=== PATIENT | female | born 1970 | race Caucasian/White ===

== ENCOUNTER 2022-02-05 13:17 | Outpatient (CLI) | payer BC, SELFPAY ==
--- NOTE | 2022-02-05 13:45 | CRLHL7_ITS ---
For Patients: As a result of the Century Cures Act, medical imaging exams and procedure reports are released immediately into your electronic medical record. You may view this report before your referring provider. If you have questions, please contact your health care provider. INDICATION: Low back pain. TECHNIQUE : Lumbar spine MRI without contrast. The following sequences were obtained: Sagittal T1, T2 weighted and STIR sequences. Axial T1 and T2 weighted sequences. COMPARISON: None available. FINDINGS : Five lumbar type vertebral bodies, with the last fully formed disc space designated as L5-S1. Accentuated lumbar lordosis. No recent compression fracture or marrow replacing process. Lower cord/conus signal is normal. The conus terminates at a normal location. No intradural lesion. No extraspinal soft tissue abnormalities. Discs/Endplates: At L1-2, mild disc height loss and disc desiccation. At L2-3, disc desiccation with broad-based Schmorl`s node deformities. Remaining discs exhibit normal height and hydration signal. Prominent anterior/lateral paravertebral disc osteophytes at T12-L1, L1-2 and L2-3. Trace type 1 reactive marrow changes at T12-L1 anteriorly. Findings at individual levels as follows: T12-L1: No spinal canal or neural foraminal stenosis. L1-2: 5 millimeters retrolisthesis. Mild disc bulge. Mild right neural foraminal stenosis. No spinal canal or left neural foraminal stenosis. L2-3: Trace retrolisthesis. Mild disc bulge. No spinal canal or neural foraminal stenosis. L3-4: No spinal canal or neural foraminal stenosis. L4-5: No spinal canal or neural foraminal stenosis. L5-S1: Shallow central protrusion. No spinal canal or neural foraminal stenosis. Imaged SI joints: Within normal limits. Imaged sacrum: Within normal limits. IMPRESSION: 1. Scattered lumbar spondylosis without high grade spinal canal/neural foraminal stenosis or impingement of neural structures. 2. At T12-L1, mild type 1 reactive marrow changes anteriorly. 3. At L1-2, grade 1 retrolisthesis and mild right neural foraminal stenosis. Dictated by Derrick Garvin MD @ 02/05/2022 3:44:45 PM (Electronically Signed)
== END 2022-02-05 13:18 | disposition home or self-care (01) ==
LOC: MRI 13:17
PROVIDERS: PCP Family Medicine; Visit Provider Family Medicine
DX: M54.50 Low back pain, unspecified (principal); M51.26 Other intervertebral disc displacement, lumbar region; M51.27 Other intervertebral disc displacement, lumbosacral region
CPT/HCPCS: 72148

== ENCOUNTER 2023-10-03 13:56 | Emergency (ER) | payer BC, SELFPAY ==
[2023-10-03 13:58] VITALS: BP 101/62; PULSE 96; RESP 16; TEMP 36; O2SAT 97; BMI 26.6
[2023-10-03] MEDS: LOPERAMIDE HCL 2 MG CAPSULE 4 MG PO (14:34)
[2023-10-03] MEDS: ONDANSETRON 2 MG/ML inj 4 MG IVP (14:34)
[2023-10-03] MEDS: 0.9 % SODIUM CHLORIDE 1000 ml 1,000 ML IV (14:34)
[2023-10-03 14:43] LABS: Basophils Percent Auto 0.2 % (0.0-3.0); Eosinophils Percent Auto 0.9 % (0.0-7.0); Hematocrit 47.1 % (33.0-51.0); Hemoglobin* 15.6 gm/dL (12.0-16.0); Immature Granulocytes Pct Auto 1.1 %; Lymphocytes Percent Auto 18.5 % (20-44); Mean Corpuscular HGB Conc 33 gm/dL (32-36); Mean Corpuscular Hemoglobin 31 pg (26-34); Mean Corpuscular Volume 92 fL (80-100); Monocytes Percent Auto 7.1 % (0.0-11.0); Neutrophils Percent Auto 72.2 % (42.0-72.0); Platelet Count* 313 K/uL (140-440); RDW Coefficient of Variation % 12.6 % (11.5-15.5); Red Blood Count 5.12 m/uL (4.00-5.20); White Blood Count* 13.57 K/uL (4.50-11.00)
[2023-10-03 14:44] LABS: Slide Review Reflex No
[2023-10-03 14:59] LABS: Chloride* 99 mmol/L (96-114); Sodium* 137 mmol/L (135-149)
[2023-10-03 15:00] LABS: Albumin* 4.6 g/dL (3.3-5.0); Potassium* 3.5 mmol/L (3.6-5.1)
[2023-10-03 15:02] LABS: Creatinine* 0.9 mg/dL (0.5-1.5); Est. Creatinine Clearance* 72.08; Estimated Glomerular Filt Rate 76 ml/min
[2023-10-03 15:03] LABS: Alkaline Phosphatase* 80 U/L (40-150); Anion Gap 10 mEq/L (7-15); Aspartate Amino Transferase* 24 U/L (12-35); Bilirubin Direct* 0.3 mg/dL (0.0-0.5); Bilirubin Total* 0.6 mg/dL (0.1-1.5); Blood Urea Nitrogen* 22 mg/dL (7-30); Calcium* 9.1 mg/dL (8.4-10.6); Carbon Dioxide* 28 mmol/L (20-32); Glucose* 130 mg/dL (60-115); Total Protein* 7.3 g/dL (6.0-8.3)
[2023-10-03 15:04] LABS: Alanine Aminotransferase* 28 U/L (4-35)
--- NOTE | 2023-10-03 15:22 | ED.GENADULT ---
HPI - General Adult General Chief complaint: Diarrhea Stated complaint: Vomiting, diarrhea Time Seen by Provider: 10/03/23 13:57 Source: patient Mode of arrival: ambulatory Limitations: no limitations History of Present Illness HPI narrative: 52-year-old female coming in today complaining of vomiting and diarrhea going on day 3. She states that she had 2 days of vomiting and diarrhea. She had no vomiting today however the diarrhea continues. She can have up to 5 episodes per day. They are not dark or tarry stools. She denies any blood in her urine or vomitus. She states that she feels nauseated today but again, no vomiting. She states that she has been eating but any time she eats she has immediate diarrhea. She believes that she got food poisoning from a restaurant that she ate at on Friday. She feels bloated. She has no fevers or chills. She has abdominal cramping. She denies any chest pain or shortness of breath. She denies any recent traveling or sick contacts that she is aware of. She is not short of breath. She took some Pepto-Bismol, no other medications. No recent antibiotic use. Related Data Home Medications ?Medication ?Instructions ?Recorded ?Confirmed aripiprazole 5 mg tablet (Abilify) 5 mg PO QDAY 01/24/22 03/10/23 dextroamphetamine-amphetamine 5 mg 5 mg PO QDAY 01/24/22 03/10/23 tablet (Adderall) zoledronic acid 5 mg/100 mL in IV 01/24/22 03/10/23 mannitol 5 %-water intravenous piggybck (Reclast) Previous Rx's ?Medication ?Instructions ?Recorded celecoxib 200 mg capsule (Celebrex) 200 mg PO QDAY #30 caps 02/06/22 Allergies Allergy/AdvReac Type Severity Reaction Status Date / Time minocycline Allergy Verified 03/10/23 08:59 Penicillins Allergy Rash Verified 03/10/23 08:59 Review of Systems Status of ROS: Reports: 10 or more systems reviewed and unremarkable except as noted in History and below [facility] Medical History IBS (irritable bowel syndrome) ?K58.9 - Irritable bowel syndrome without diarrhea (ICD-10) Depression ?F32.A - Depression, unspecified (ICD-10) Low back pain ?M54.50 - Low back pain, unspecified (ICD-10) Osteoporosis ?M81.0 - Age-related osteoporosis without current pathological fracture (ICD-10) GERD (gastroesophageal reflux disease) ?K21.9 - Gastro-esophageal reflux disease without esophagitis (ICD-10) Surgical History H/O left knee surgery ?Z98.890 - Other specified postprocedural states (ICD-10) Social History Smoking Status: Current every day smoker Exam Narrative: Exam Narrative: Well-nourished well-developed patient in no acute distress. Alert and oriented. Answers questions appropriately. Mood and affect are appropriate. Thoughts are goal oriented and rational. No tangential or magical thinking noted. Patient speaks in full sentences without needing to catch her breath. She does not appear ill or toxic. HEENT: Normocephalic atraumatic. Pupils are equally round reactive to light. Extraocular muscles are intact. Conjunctivae are moist without any icterus noted. Moist mucous membranes. Posterior pharynx is normal. Neck is soft without any lymphadenopathy or thyromegaly. No masses are appreciated. Cardiovascular: Heart is regular rate and rhythm S1 and S2 are present without any murmurs. Lungs: Clear to auscultation bilaterally no wheezes rhonchi or rales are appreciated. Patient takes deep breaths without any discomfort. Abdomen: Soft and nontender nondistended with normal bowel sounds. No guarding or rebound. Extremities: Bilateral lower extremities are without edema. Normal DP and PT pulses. Skin: Well perfused without any obvious rashes. Const: Vital Signs, click to edit/add: Vital Signs - 24 hr 10/03/23 13:58 Temperature 96.8 F L Pulse Rate [Pulse Oximeter] 96 Respiratory Rate 16 Blood Pressure [Ri ght Upper Arm] 101/62 Pulse Oximetry 97 Oxygen Delivery Me thod Room Air Course Course ED Course: IV is established and patient received a L of normal saline and IV Zofran. Blood work shows that her CBC is mildly elevated at 13.57. Potassium just slightly low at 3.5, electrolytes otherwise within normal limits. LFTs are normal. She was not able to leave a stool sample while she was here. Vital Signs Vital signs: Initial Vital Signs Temperature 96.8 F L 10/03/23 13:58 Temperature Source Temporal Artery Scan 10/03/23 13:58 Pulse Rate 96 10/03/23 13:58 Respiratory Rate 16 10/03/23 13:58 Blood Pressure 101/62 10/03/23 13:58 Blood Pressure Mean 75 10/03/23 13:58 Pulse Oximetry 97 10/03/23 13:58 Oxygen Delivery Method Room Air 10/03/23 13:58 Vital Signs Temperature 96.8 F L 10/03/23 13:58 Pulse Rate 96 10/03/23 13:58 Respiratory Rate 16 10/03/23 13:58 Blood Pressure 101/62 10/03/23 13:58 Pulse Oximetry 97 10/03/23 13:58 Oxygen Delivery Method Room Air 10/03/23 13:58 Temperature 96.8 F L 10/03/23 13:58 Pulse Rate 96 10/03/23 13:58 Respiratory Rate 16 10/03/23 13:58 Blood Pressure 101/62 10/03/23 13:58 Pulse Oximetry 97 10/03/23 13:58 Oxygen Delivery Method Room Air 10/03/23 13:58 Medications Administered Medications: Discontinued Medications Generic Name Dose Route Start Last Admin Trade Name Freq PRN Reason Stop Dose Admin Sodium Chloride 1,000 mls @ 1,000 mls/hr 10/03/23 14:15 10/03/23 14:34 0.9 % Sodium Chloride 1000 Ml IV 10/03/23 15:14 1,000 mls/hr .Q1H CESAR Administration Loperamide HCl 4 mg 10/03/23 14:15 10/03/23 14:34 Loperamide Hcl 2 Mg Capsule PO 10/03/23 14:16 4 mg ONCE ONE Administration Ondansetron HCl 4 mg 10/03/23 14:14 10/03/23 14:34 Ondansetron 2 Mg/Ml Inj IVP 10/03/23 14:15 4 mg ONCE ONE Administration Medical Decision Making MDM Narrative Medical decision making narrative: 52-year-old female with 48 hours all vomiting and continued diarrhea. We discussed gastroenteritis as the likely cause of this. We discussed symptomatic treatment with continued fluid hydration rest and Imodium. Patient had no other questions. Lab Data Lab results reviewed: Yes I reviewed the patient's lab results Labs: Lab Results 10/03/23 Range/Units 14:32 WBC 13.57 H (4.50-11.00) K/uL RBC 5.12 (4.00-5.20) m/uL Hgb 15.6 (12.0-16.0) gm/dL Hct 47.1 (33.0-51.0) % MCV 92 (80-100) fL MCH 31 (26-34) pg MCHC 33 (32-36) gm/dL RDW Coeff of Laina 12.6 (11.5-15.5) % Plt Count 313 (140-440) K/uL Neut % (Auto) 72.2 H (42.0-72.0) % Lymph % (Auto) 18.5 L (20-44) % [place] % (Auto) 7.1 (0.0-11.0) % Eos % (Auto) 0.9 (0.0-7.0) % Baso % (Auto) 0.2 (0.0-3.0) % Neut # (Auto) 9.80 H (1.7-7.0) K/uL Lymph # (Auto) 2.50 (0.90-2.90) K/uL [place] # (Auto) 1.00 H (0.00-0.90) K/UL Eos # (Auto) 0.10 (0.00-0.50) K/uL Baso # (Auto) 0.00 (0.00-0.30) K/uL Abs Immat Gran (auto) 0.10 (0.00-0.30) K/uL Imm/Tot Granulo (auto) 1.1 % Sodium 137 (135-149) mmol/L Potassium 3.5 L (3.6-5.1) mmol/L Chloride 99 (96-114) mmol/L Carbon Dioxide 28 (20-32) mmol/L Anion Gap 10 (7-15) mEq/L BUN 22 (7-30) mg/dL Creatinine 0.9 (0.5-1.5) mg/dL Estimated Creat Clear 72.08 Estimated GFR 76 ml/min Glucose 130 H (60-115) mg/dL Calcium 9.1 (8.4-10.6) mg/dL Total Bilirubin 0.6 (0.1-1.5) mg/dL Direct Bilirubin 0.3 (0.0-0.5) mg/dL AST 24 (12-35) U/L ALT 28 (4-35) U/L Alkaline Phosphatase 80 (40-150) U/L Total Protein 7.3 (6.0-8.3) g/dL Albumin 4.6 (3.3-5.0) g/dL Discharge Plan Discharge Clinical Impression: Gastroenteritis Patient Disposition: Home, Self-Care Condition: Stable Additional Instructions: Likely have a viral infection of the gastrointestinal system causing nausea, vomiting and diarrhea. This can last a few days before it gets better. Recommend you start taking Imodium as directed per the bottle. Continue increasing your fluid intake until your diarrhea subsides. Recommend a daily boost shake or Pedialyte. Follow-up as needed. Prescriptions: No Action dextroamphetamine-amphetamine [Adderall] 5 mg tablet 5 mg PO QDAY zoledronic [id number] [Reclast] 5 mg/100 mL piggyback IV aripiprazole [Abilify] 5 mg tablet 5 mg PO QDAY celecoxib [Celebrex] 200 mg capsule 200 mg PO QDAY Qty: 30 0RF Follow Up/Referrals: Traci Mckeon MD [Primary Care Provider] - Stand Alone Forms: Eat Info Instructions
== END 2023-10-03 17:15 | disposition home or self-care (01) ==
PROVIDERS: Emergency Provider Family Medicine; PCP Family Medicine
DX: K52.9 Noninfective gastroenteritis and colitis, unspecified (principal)
CPT/HCPCS: 36415; 80048; 80076; 85025; 87045; 87046; 87427; 87493; 96374; 99283; 99284; A9270; J2405; J7030

== ENCOUNTER 2024-12-31 08:57 | Emergency (ER) | payer BC, SELFPAY ==
--- OUTSIDE RECORDS SUMMARY | 2024-12-31 08:59 | XMS_ITS | Clinical Summary ---
[facility] Address [address] [place] [address] Care Team Providers Care Director Industrial Nursing Name Role Phone No Primary/Referring, Phy Primary Care Provider Unavailable Source Comments You are receiving this document as you are listed as the primary care provider,follow-up provider, or the patient has been referred to you for consultation.This is in compliance with the Medicare and[employer] Hospital[employer] EHR Incentive Program,which states Providers who transition their patient to another setting of careor provider of care or refers their patient to another provider of care shouldprovide summary care record for each transition of care or referral. [facility] All[facility] Active Allergy Reactions Criticality Noted Date Comments Amoxicillin Hives High 11/13/2016 Minocycline Nausea And Vomiting 11/13/2016 Penicillins Hives High 11/13/2016 Sulfonamide Derivatives 08/18/2001 Medications Multiple Vitamin (MULTI VITAMIN DAILY) TABS 90 Tab 4 11/13/2016 Active folic acid 1 MG tablet Take 1 Tab by mouth daily. 90 Tab 3 11/13/2016 Active Immunizations Immunization Administration Dates Next Due Flu Vac Preserv Free (3+yrs) 01/25/2009 H1n1 Miv San[employer]i 3+ Yr (Injected) 05/09/2009 Social History Tobacco Use Types Packs/Day Years Used Date Smoking Tobacco: Every Day Cigarettes 1.5 30 Smokeless Tobacco: Never Alcohol Use Standard Drinks/Week Comments No 0 (1 standard drink = 0.6 oz pur e alcohol) Comments Unknown Sex and Gender Information Value Date Recorded Sex Assigned at Not on file Legal Sex Female 3:54 AM CDT Gender Identity Not on file Sexual Orientation Not on file Last Filed Vital Signs Vital Sign Reading Time Taken Comments Blood Pressure 106/66 11/13/2016 10:16 AM CDT Pulse 58 11/13/2016 10:16 AM CDT Temperature - - Respiratory Rate - - Oxygen Saturation - - Inhaled Oxygen Concentration - - Weight 63 kg (139 lb) 11/13/2016 10:16 AM CDT Height 168.9 cm (5' 6.5) 11/13/2016 10:16 AM CD T Body Mass Index 22.1 11/13/2016 10:16 AM CDT Plan of Treatment Health Maintenance Due Date Last Done Comments Cervical Cancer Screening Due 1968 Colon Cancer Screening Plan Due 1968 Hep C Screening (Preventive Services) 1968 Mammogram 1968 HIV Screening (Preventive Services) 1984 Adult Preventive Visit 1986 HepB Vaccine (1) 10/04/1987 Cholesterol 2013 Pneumococcal Vaccine 50+ Yrs (1 of 1 - PCV) 2018 Zoster/Shingles Vaccine (1 o f 2) 2018 DTaP/Tdap/Td Vaccine (2 - Tdap) 11/18/2019 11/17/2009, 01/10/1999 COVID-19 Vaccine (1 - 2023-2 5 season) 2024 Influenza Vaccine (#1) 2024 01/25/2009 HepA Vaccine Aged Out No longer eligi ble based on patient's age to complete this topic Hib Vaccine Aged Out No longer eligi ble based on patient's age to complete this topic IPV (Polio) Vaccine Aged Out No longe r eligible based on patient's age to complete this topic MCV4 Vaccine Aged Out No longer eligi ble based on patient's age to complete this topic Meningococcal B Vaccine Aged Out No l onger eligible based on patient's age to complete this topic Care Teams Director Industrial Nursing Relationship Specialty Start Date End Date No Primary/Referring, Lenny PCP - General 08/31/13
--- OUTSIDE RECORDS SUMMARY | 2024-12-31 08:59 | XMS_ITS | Encounter Summary ---
Author Organization [facility] Address [address] [place] [id number] Care Team Providers Care Pick Up Attendant Name Role Phone Traci Mckeon MD Primary Care Provider Chong Mendez MD Unavailable [phone] Reason for Visit * Reason Onset Date Comments Medication Question 07/03/2023 Encounter Details Date Type Department Care Team (Late st Contact Info) Description 07/03/2023 MyC Medical Advice [facility] [address] [place] [address] Chong Mendez MD [address] [facility] [address] [place] [address] Medication Question Social History Tobacco Use Types Packs/Day Years Used Date Smoking Tobacco: Former Cigarettes Q uit: 06/28/2020 Smokeless Tobacco: Never Alcohol Use Standard Drinks/Week Comments No 0 (1 standard drink = 0.6 oz pur e alcohol) PHQ-2 Answer Date Recorded PHQ-2 Score 0 06/25/2023 Adolescent Education Answer Date Record ed Getting School Help Needed Not on file 01/05 Comments No Sex and Gender Information Value Date Recorded Sex Assigned at Not on file 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 Pt inquiring how many days valtrex is adequate to treat outbreak? 2 tabs or 7-10 days worth? If 7-10 days, she is requesting an rx. Last OV: 06/25/23 documented in this encounter Plan of Treatment Not on file documented as of this encounter Visit Diagnoses Not on filedocumented in this encounter Additional Health Concerns Assessment Noted Time PHQ-9 Depression Total Score: 0 01/12/20 21 9:27 AM CDT documented as of this encounter Care Teams Pick Up Attendant Relationship Specialty Start Date End Date Traci Mckeon MD PCP - General Family Practice 11/23/18 Chong Mendez MD [address] [address] Assigned OBGYN Provider 07/05/23 documented as of this encounter
--- OUTSIDE RECORDS SUMMARY | 2024-12-31 08:59 | XMS_ITS | Clinical Summary ---
Author Organization [facility] Address [address] [place] [id number] Care Team Providers Care Hi Low Truck Driver Name Role Phone Traci Mckeon MD Primary Care Provider [phone] Chong Mendez MD Unavailable [phone] Allergies Active Allergy Reactions Criticality Noted Date Comments Amoxicillin 10/17/2015 Doxycycline diarrhea Penicillins 10/17/2015 Sulfa Antibiotics diarrhea Medications Cholecalcifero l (VITAMIN D3 PO) Take 1,000 Units by mouth daily Active FOLIC ACID PO Take 1 mg by mouth daily Active amphetamine-de xtroamphetamin e (ADDERALL XR) 10 MG 24 hr capsule 8 Active ARIPiprazole (ABILIFY) 5 MG tablet 8 Active CALCIUM PO Active MAGNESIUM PO Active albuterol (PROAIR HFA/PROVENTIL HFA/VENTOLIN HFA) 108 (90 Base) MCG/ACT inhaler Inhale 2 puffs into the lungs 0 Active valACYclovir (VALTREX) 1000 mg tablet TAKE 1 TABLET BY MOUTH TWICE DAILY FOR 10 DAYS 1 Active valACYclovir (VALTREX) 500 MG tabletIndicati ons:HSV (herpes simplex virus) infection Take 1 tablet (500 mg) by mouth daily 90 tablet 3 1 Active Zoledronic Acid (RECLAST IV) Active clindamycin (CLEOCIN T) 1 % external solution Apply topically. 4 Active cyclobenzaprin e (FLEXERIL) 10 MG tablet Take 1 tablet by mouth 3 times daily as needed. 4 Active fluorouracil (EFUDEX) 5 % external cream MIX 1 TO 1 WITH CALCIPOTRIENE THEN APPLY TO FACE TWICE DAILY FOR 4-7 DAYS 4 Active amphetamine-de xtroamphetamin e (ADDERALL XR) 15 MG 24 hr capsule 4 Active Active Problems Problem Noted Date Diagnosed Date LGSIL on Pap smear of cervix 12/30/2018 Overview (03/08/2024): 2014 dx vulvar cancer 06/23/18 ASCUS, neg HPV 12/30/18 LSIL, neg HPV 01/19/19 colpo bx and ECC neg (above per Care Everywhere) 06/28/19 NIL pap, neg HPV. Plan: pap in 6 months 01/03/20 NIL pap, neg HPV. Plan: cotest in 1 year 01/11/21 NIL, Neg HPV. Plan 3 yr co-test 02/24/24 NIL pap, neg HPV. Vulvar biopsy- negative. Plan cotest in 3 years. Immunizations Immunization Administration Dates Next Due Flu, Unspecified 01/25/2009 Influenza (H1N1) 05/09/2009 Influenza (IIV3) PF 02/03/2013, 3,02/19/2011,2009,03/12/2008,02/06/2006 Influenza (prior to 2023) 02/19/2011 Influenza Vaccine 18-64 (Flublok) 01/11/2021 Influenza Vaccine >6 months,quad, PF ,01/16/2019,01/09/2018,2016,12/21/2013 Pneumococcal 23 valent 02/06/2006 TD,PF 7+ (Tenivac) 01/10/1999 TDAP (Adacel,Boostrix) 12/31/2019,11/17/2009 Td (Adult), Adsorbed 01/10/1999 Zoster recombinant adjuvante d (Shingrix) 03/03/2020,12/31/2019 Family History Medical History Relation Comments Cancer Father lung Cancer Maternal Grandmother breast Diabetes Maternal Uncle Diabetes Paternal Grandmother Lung Cancer Sister bone and lung ca ncer Relation Status Comments Father Maternal Grandmother Maternal Uncle Paternal Grandmother Sister Social History Tobacco Use Types Packs/Day Years Used Date Smoking Tobacco: Former Cigarettes Q uit: 06/28/2020 Smokeless Tobacco: Never Tobacco Cessation:Counseling Given: No Alcohol Use Standard Drinks/Week Comments No 0 (1 standard drink = 0.6 oz pur e alcohol) PHQ-2 Answer Date Recorded PHQ-2 Score 0 06/25/2023 Adolescent Education Answer Date Record ed Getting School Help Needed Not on file 01/05 Comments No Sex and Gender Information Value Date Recorded Sex Assigned at Not on file Legal Sex Female 2:58 AM SIDEWALK INSPECTOR Gender Identity Not on file Sexual Orientation Not on file Occupation Industry Job Start Date Job End Date Not on file Not on file Not on file Not on file Last Filed Vital Signs Vital Sign Reading Time Taken Comments Blood Pressure 136/72 02/24/2024 3:54 PM SIDEWALK INSPECTOR Pulse 74 01/11/2021 9:29 AM CDT Temperature 36.6 C (97.8 F) 06/07/1999 11:00 AM SIDEWALK INSPECTOR Respiratory Rate - - Oxygen Saturation - - Inhaled Oxygen Concentration - - Weight 75.8 kg (167 lb) 02/24/2024 3:54 PM SIDEWALK INSPECTOR Height 172.7 cm (5' 8) 02/24/2024 3:54 PM SIDEWALK INSPECTOR Body Mass Index 25.39 02/24/2024 3:54 PM SIDEWALK INSPECTOR Plan of Treatment Health Maintenance Due Date Last Done Comments ADVANCE CARE PLANNING 1968 ANNUAL REVIEW OF HM ORDERS 1968 CT COLONOGRAPHY 1968 DIABETES SCREENING 1968 FIT 1968 FLEX SIG 1968 sDNA (Cologuard) 1968 HEPATITIS B VACCINE (1 of 3 - 19+ 3-dose series) 10/04/1987 LIPID 2008 PHQ-2 (once per calendar year) 2024 06/25/2023, 01/11/2021, 01/11/2021, Additional history exists YEARLY PREVENTIVE VISIT 06/24/2024 06/25/19 24, 03/01/2022, 01/11/2021, Additional history exists LUNG CANCER SCREENING 08/28/2024 08/29/2023 , 02/28/2023, 02/28/2023, Additional history exists COVID-19 VACCINE ( season) 2024 03/01/2022, 03/06/2021, 08/01/2020, Additional history exists INFLUENZA VACCINE (#1) 2024 , 02/07/2023, 02/13/2022, Additional history exists COLONOSCOPY 01/27/2025 01/28/2020, 01/28/2020 COLORECTAL CANCER SCREENING 01/27/2025 MAMMO SCREENING 02/19/2025 02/20/2024, 11/2023, 07/03/2023, Additional history exists HPV FOLLOW-UP 02/23/2027 02/24/2024, 02/12, 01/11/2021, Additional history exists PAP FOLLOW-UP 02/23/2027 02/24/2024, 02/12, 03/01/2022, Additional history exists DTAP/TDAP/TD VACCINE (3 - Td or Tdap) 12/30/2029 12/31/2019, 11/17/2009, 01/10/1999, Additional history exists ZOSTER VACCINE Completed 03/03/2020, 12/31/2019 HEPATITIS C SCREENING Completed 03/01/2022 HIV SCREENING Completed 03/01/2022 PNEUMOCOCCAL VACCINE 50+ YEARS Completed 03/01/2022, 02/06/2006 PAP Discontinued 02/24/2024, 02/12, 03/01/2022, Additional history exists HPV VACCINE (No Doses Required) Completed MENINGITIS VACCINE Aged Out No longer eligible based on patient's age to complete this topic Procedures Procedure Name Priority Date/Time Associated Diagnosis Comments HPV AND GYNECOLOGIC CYTOLOGY PANEL Routine 02/24/2024 4:39 PM SIDEWALK INSPECTOR Vulvar cancer (H) MA DIAGNOSTIC RIGHT W BOBBY Routine 07/03/2023 9:32 AM CDT Women's annual routine gynecological examination Subareolar mass of right breast COLONOSCOPY - HIM SCAN Routine 01/28/2020 from Last 3 Months or Most Recently Relevant to Health Maintenance Results * HPV and Gynecologic Cytology Panel ??? Recommended Age 30-65 Years (02/24/2024 4:39 PM SIDEWALK INSPECTOR) Human Papilloma Virus 16 DNA Negative Negative 02/25/2024 4:13 PM [facility] Human Papilloma Virus 18 DNA Negative Negative 02/25/2024 4:13 PM [facility] Human Papilloma Virus Other Negative Negative 02/25/2024 4:13 PM [facility] FINAL DIAGNOSIS This patient's sample is negative for high risk HPV DNA. METHODOLOGY: The [employer] system uses automated extraction, simultaneous amplification of HPV (E6/E7 oncogenes) and beta-globin, followed by real time detection of fluorescent labeled HPV and beta globin using specific oligonucleotide probes. The test specifically identifies types HPV 16 DNA and HPV 18 DNA while concurrently detecting the rest of the high risk types (31, 33, 35, 39, 45, 51, 52, 56, 58, 59, 66 or 68). COMMENTS: This test is not intended for use as a screening device for woman under age 30 with normal cervical cytology. Results should be correlated with cytologic and histologic findings. Close clinical follow up is recommended. Please see the separate Gynecologic Cytology (Pap) report from the same collection date. 02/25/2024 4:13 PM [facility] Brushing ENDOCERVICAL STRUCTURE / Unknown Non-blood Collection / Unknown 02/24/2024 4:39 PM SIDEWALK INSPECTOR 02/24/2024 4:53 PM SIDEWALK INSPECTOR Chong Mendez MD LAB - BLOOD ORDERABLES Fin al Result SPECIAL[facility] Specialty Lab [address] [facility], [address] [phone], [facility] Molecular Diagnostics [address] [facility] [address] [facility], [address] [phone], [facility] * MA Diagnostic Right w/Bobby (07/03/2023 9:32 AM CDT) Anatomical Region Laterality Modality Breast Bilateral Mammography Impressions 07/03/2023 10:19 AM CDT IMPRESSION: BI-RADS CATEGORY: 1 - Negative. RECOMMENDED FOLLOW-UP: Routine yearly mammography beginning at age 40 or as discussed with your provider. KAYLAN SPAULDING MD Narrative 07/03/2023 10:19 AM CDT EXAM: MA DIAGNOSTIC RIGHT W/ BOBBY, US BREAST RIGHT LIMITED 1-3 QUADRANTS, 07/03/2023 9:32 AM HISTORY: Palpable lump in the right breast COMPARISON: Prior mammograms dating back to 11/17/2017 BREAST DENSITY: There are scattered areas of fibroglandular density. FINDINGS: Diagnostic tomosynthesis with CAD shows nothing for malignancy in either breast with no worrisome interval change. Targeted ultrasound shows nothing for the malignancy in the area of palpable lump with outbound telemarketing representative normal images obtained at 12:00 3 cm from the nipple.. Chong Mendez MD IMG MAMMOGRAPHY ORDERABLES Final Result * Colonoscopy - HIM Scan (01/28/2020) Carla Arredondo - 01/28/2020 See Care Everywhere-[facility] us Provider Outside PROCEDURES Final Result from Last 3 Months or Most Recently Relevant to Health Maintenance [place] [facility] Care Teams Hi Low Truck Driver Relationship Specialty Start Date End Date Traci Mckeon MD PCP - General Family Practice 11/23/18 Chong Mendez MD [address] [place], [place] [address] Assigned OBGYN Provider 07/05/23
--- OUTSIDE RECORDS SUMMARY | 2024-12-31 09:00 | XMS_ITS | Clinical Summary ---
Author Organization [employer] [facility] Address [address] [place] [id number] Care Team Providers Care Mild Disabilities Teacher Name Role Phone Traci Mckeon MD Primary Care Provider Allergies Active Allergy Reactions Criticality Noted Date Comments Minocycline Diarrhea 09/05/2006 Nickel Contact Dermatitis 04/22/2023 Had allergy testing and reacted and also during a dental procedure had sore red, raw gums. Penicillins Hives 09/05/2006 Sulfa (Sulfonamide Antibiotics) Diarrhea 09/05/2006 Patient states has had this since allergy in 2006 and tolerated Medications calcium carbonate-vitamin D3, 600 mg-400 unit, (CALCIUM 600 + D) 600 mg(1,500mg) -400 unit tabletIndications: Osteopenia, unspecified location Take 1 tablet by mouth 2 times daily with meals. 180 tablet 3 7 Active albuterol (PROVENTIL) 0.083 % neb solutionIndication s:Mild intermittent asthma with acute exacerbation (HC) Inhale 3 mL via a nebulizer every 4 hours if needed. 1 box 1 9 Active nebulizer accessories kitIndications:Mil d intermittent asthma with acute exacerbation (HC) Tubing and mask. 1 Kit 9 Active albuterol HFA (PROAIR HFA) 90 mcg/actuation inhalerIndications :URTI (acute upper respiratory infection) Inhale 2 Puffs by mouth 4 times daily if needed. 1 g 0 Active folic acid 1 mg tabletIndications: Attention deficit disorder, unspecified hyperactivity presence Take 1 tablet by mouth once daily 90 Tablet 3 2 Active Vitamin D-3 50 mcg (2,000 unit) capsuleIndications :Attention deficit disorder, unspecified hyperactivity presence Take 1 capsule by mouth once daily 90 Capsule 2 2 Active valACYclovir (VALTREX) 500 mg tabletIndications: Genital herpes simplex, unspecified site Take 1 tablet by mouth once daily 90 Tablet 3 4 Active clindamycin phosphate 1% topical 1 % external solutionIndication s:Acne, unspecified acne type APPLY SOLUTION TOPICALLY TO AFFECTED AREA TWICE DAILY 60 mL 3 4 Active OMEPRAZOLE ORAL Take by mouth. Active cyclobenzaprine 10 mg tabletIndications: Back strain, sequela Take 1 tablet by mouth three times daily as needed for muscle spasm 30 Tablet 5 Active Active Problems Problem Noted Date Diagnosed Date Esophagitis 09/09/2023 Overview (09/09/2023): EGD 08/2023 esophagitis Adenomatous colon polyp 02/02/2020 Overview (02/02/2020): Colonoscopy 01/2020 polyp, repeat in 5 years LGSIL of cervix of undetermined significance 04/2018 Overview (04/12/2022): 06/2018 ASCUS 12/2018 LSIL/HPV negative 01/2019 [place]: negative 02/2022 NIL/HPV negative Plan: Pap/HPV due 02/2025 Osteoporosis 01/09/2018 Slow urinary stream 01/13/2017 JEFFERY (generalized anxiety disorder) 03/19/2016 Overdose 10/29/2015 KARLEE III (vulvar intraepithelial neoplasia III) 0 01/03/2015 Overview (04/12/2022): 12/2014 Vulva bx - KARLEE 2-3 01/2015 Vulvectomy - KARLEE 3 (+margins) Osteopenia 10/19/2012 Attention deficit disorder without mention of hy peractivity 03/04/2011 Adjustment disorder with depressed mood 02/27/20 11 Overview (02/26/2011): Rule out adult ADD Seasonal affective disorder 03/07/2008 Tobacco use disorder 03/04/2007 Irritable bowel syndrome 10/28/2006 Genital herpes, unspecified Vitamin D deficiency Resolved Problems Problem Noted Date Diagnosed Date Resolved Date Asthma 01/16/2015 11/27/2016 Encounters Date Type Department Care Team Description 12/29/2024 Telephone [facility] [address] [place] [address] Khadar Davidson MD Incision Concern (Call Back Requested) 12/06/2024 2:45 PM CDT Office Visit [facility] [address] [place] [address] Khadar Davidson MD Follow Up (Skin excision left lower leg) 12/06/[address] [address] Traci Mckeon MD Info. 12/06/2024 Travel 12/06/[address] [address] Traci Mckeon MD Appointment Request (Appointment Request) 11/29/2024 Telephone [facility] [address] [place] [address] Khadar Davidson MD Results (pathology) 11/26/2024 8:50 AM CDT Office Visit [address] [address] Traci Mckeon MD Follow Up (chest spots ); Concerns (discuss delayed lab results prior to surgery ) 11/26/2024 Travel 11/22/2024 3:30 PM CDT Office Visit [facility] [address] [place] [address] Khadar Davidson MD Consult (SCC of skin of left lower extremity referred by Dr. Mckeon) 11/22/2024 Travel 11/16/[address] [phone] Yola Brian, DO Need Meds 11/11/[address] [place] [address] Traci Mckeon MD Referral (General Surgeon ) 11/08/2024 7:25 AM CDT Office Visit [facility] [address] [place] [address] Traci Mckeon MD Derm Problem (Left guallpa another spot appeared. Also a few spots on chest) 11/08/2024 Travel 10/22/2024 Nurse Triage [facility] [address] [facility] [place] [address] Sabrina Hale, OD Eye Pain/problem from Last 3 Months Immunizations Immunization Administration Dates Next Due AMB Influenza, IIV3 (Age >=3 years)(Flu Clinic Only) 02/03/2013,02/19/2011,03/12/2008 Amb Influenza, ccIIV3 (Age > =18 Years) Preserve Free (Flu Clinic Only) 01/11/2021 COVID-19 vaccine (HiveLive-Bio NTech 30mcg/0.3mL) 12YO+ BIVALENT PF, MDV 03/01/2022 COVID-19 vaccine (Pfizer-Bio NTech 30mcg/0.3mL) PF, MDV 08/01/2020,07/11/2020 INFLUENZA, IIV3 PF (AGE >= 6 MO) 01/08/2024 Influenza A (H1N1), Inactivated 05/09/2009 Influenza RIV4 (Age 18+ Year s) PRESERV FREE 01/11/2021 Influenza Virus, Unspecified 01/25/2009 Influenza, IIV3 (Age 6-35 mos) 02/19/2011 Influenza, IIV3 (Age >=3 years) 02/04/20 13,04/25/2012,03/29/2010,2007,02/06/2006 Influenza, IIV4 02/07/2023, 2,12/31/2019,2018,01/09/2018,01/17/2017,12/21/2013 Pneumococcal Conj 20-valent (Prevnar 20) 03/01/2022 Pneumococcal Poly,23-Valent (Pneumovax) 02/06/2006 Td (Age >=7 Years) 01/10/1999 Td, Preservative Free (age > = 7 Years) 01/10/1999 Tdap 12/31/2019,11/17/2009 Zoster (Shingrix-RZV, recombinant) 03/03/2020, Family History Medical History Relation Name Comments Psychiatric illness Brother 2 Cancer Father lung Cancer-breast Maternal Grandmother Blood Disease Mother essential thro mbocythemia Cancer Mother skin/uterine Heart Disease Mother CHF Hypertension Mother Other Mother COPD Psychiatric illness Mother Thyroid Disease Mother Cancer-breast Other Niece X2 Heart Disease Paternal Aunt Mi age 34 Heart Disease Paternal Grandfather Cancer Paternal Grandmother Diabetes Paternal Grandmother Heart Disease Paternal Uncle Psychiatric illness Sister 2 Heart Disease Sister 3 6 stents age 5 5 Cancer-ovarian No Family History Relation Name Status Comments Brother 1 Alive x2 Brother 2 Father Maternal Grandfather Maternal Grandmother Mother (Age 83) COPD, Afib Other Niece Paternal Aunt Paternal Grandfather Paternal Grandmother Paternal Uncle Sister 1 Alive x3 Sister 2 Sister 3 Son Alive x1 Social History Tobacco Use Types Packs/Day Years Used Date Smoking Tobacco: Former Cigarettes 1 39.8 0 07/16/1983 - 05/05/2023 Smokeless Tobacco: Never Tobacco Cessation:Counseling Given: Not Answered Comments:quit on 08/28/20 Alcohol Use Standard Drinks/Week Comments No 0 (1 standard drink = 0.6 oz pur e alcohol) PHQ-2 Answer Date Recorded PHQ-2 TOTAL SCORE 0 03/18/2024 Social Connections Answer Date Recorded Do you often feel lonely or isolated from those around you? 0 03/17/2024 Financial Resource Strain Answer Date R ecorded Difficulty of Paying Living Expenses 3 03/17/2024 Difficulty of Paying Living Expenses Not on file 03/17/2024 Food Insecurity Answer Date Recorded Do you worry your food will run out before you are able to buy more? 1 03/17/2024 Transportation Needs Answer Date Record ed Does lack of transportation keep you from medica l appointments? 1 03/17/2024 Does lack of transportation keep you from work, meetings or getting things that you need? 1 03/17/2024 Housing Stability Answer Date Recorded What is your housing situation today? 1 03/17/2024 Utilities Answer Date Recorded Do you have trouble paying f or utilities (for example, heat, electricity, water, phone)? 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 on file Not on file Not on file Obstetrics History Para Term AB IAB SAB Ectopic Multiple Livin g Live Births 3 1 1 0 1 1 0 0 2 2 Date Outcome GA Total Labor Labor/2nd/3rd Weight Sex Type Anes PTL Yovana A1 A5 Name Clin 1991 IAB 1996 M Vag-S pont Living 1996 Term 40w 0d M Vag Living Last Filed Vital Signs Vital Sign Reading Time Taken Comments Blood Pressure 121/61 12/06/2024 2:47 PM CDT Pulse 90 12/06/2024 2:47 PM CDT Temperature 37.1 C (98.8 F) 03/05/2024 10:01 AM BUSINESS SUPPORT ASSOCIATE Respiratory Rate 16 03/05/2024 10:38 AM BUSINESS SUPPORT ASSOCIATE Oxygen Saturation 97% 12/06/2024 2:47 PM CDT Inhaled Oxygen Concentration - - Weight 70.6 kg (155 lb 9.6 oz) 12/06/2024 2:47 P M CDT Height 167.6 cm (5' 6) 02/07/2023 1:08 PM CDT Body Mass Index 25.11 02/07/2023 1:08 PM CDT Plan of Treatment Upcoming Encounters Date Type Department Care Team (Late st Contact Info) Description 01/06/2025 3:40 PM CDT Office Visit [facility] [address] [place] [address] Traci Mckeon MD [address] [place] [address] 02/02/2025 8:10 AM CDT Hospital Encounter [facility] [address] [place] [address] Will Sparks MD [address] [place] [address] 02/02/2025 8:10 AM CDT - 02/02/2025 8:50 AM CDT Surgery [facility] [address] [facility] [place] [place] [address] Will Sparks MD [address] [facility] [place] [facility] [address] COLONOSCOPY Scheduled Procedures Name Priority Associated Diagnoses Date/Ti me COLONOSCOPY Screening for colon cancer 02/02/2025 8:10 AM CDT Health Maintenance Due Date Last Done Comments Hepatitis B series for 19+ ( 1 of 3 - 19+ 3-dose series) 10/04/1987 BMI (ht and wt on same day) for age 18+ 02/08/2024 02/07/2023, 10/18/2022, 08/12/2022, Additional history exists COVID-19 vaccine series (2024- season) 2024 03/01/2022, 03/06/2021, 08/01/2020, Additional history exists Influenza Vaccine (#1) 2024 4, 02/07/2023, 02/13/2022, Additional history exists Colonoscopy through age 75 01/27/202501/27, 01/28/2020, 01/28/2020, Additional history exists Mammogram for age 45-75 02/19/2025 02/20/20 24, 02/17/2023, 01/14/2022, Additional history exists Pap test for age 21-65 03/01/2025 2, 03/01/2022, 12/30/2018, Additional history exists Depression screening for age 12+ 03/18/2025 03/18/2024, 04/22/2023, 02/14/2022, Additional history exists Low Dose CT (for lung CA) ag e 50-80 08/30/2025 08/30/2024, 08/29/2023, 02/28/2023, Additional history exists Lipids for age 45-75 10/11/2026 10/11/2021, 09/27/2020, 08/07/2018, Additional history exists Tetanus booster 12/30/2029 12/31/2019, 08/0 09/2009, 01/10/1999, Additional history exists RSV vaccine for adults or (1 - 1-dose 75+ series) 10/04/2043 Zoster (shingles) series for age 50+ Completed 03/03/2020, 12/31/2019 HIV for age 15-65 Completed 03/01/2022 Hepatitis C screening for ag e 18-79 Completed 03/01/2022 Pneumococcal series for age 50+ Completed 2, 02/06/2006 Goals Goal Patient Goal Type Associated Problems Recent Progress Patient-Stated? Author Autogenerat ed Goal Care Plan Autogenerated Problem No April Sauceda Procedures Procedure Name Priority Date/Time Associated Diagnosis Comments PATH TISSUE EXAM Routine 11/22/2024 3:49 PM CDT Squamous cell carcinoma of skin of lower extremity, unspecified laterality PATH TISSUE EXAM Routine 11/08/2024 7:47 AM CDT Skin lesion of left leg CT CHEST SCREENING LOW DOSE WO CONTRAST Routine 08/30/2024 9:15 AM CDT Tobacco use disorder XR MAMMO HERACLIO BILAT SCREEN Routine 02/20/2024 1:15 PM BUSINESS SUPPORT ASSOCIATE Visit for screening mammogram ANTI HIV 1/2 Routine 03/01/2022 10:00 AM BUSINESS SUPPORT ASSOCIATE Screening for HIV (human immunodeficiency virus) ANTI HCV Routine 03/01/2022 10:00 AM BUSINESS SUPPORT ASSOCIATE Need for hepatitis C screening test HPV HIGH RISK Routine 03/01/2022 9:30 AM BUSINESS SUPPORT ASSOCIATE Screening for cervical cancer LIPID PANEL W REFLEX MEASURED LDL Routine 10/11/2021 8:25 AM CDT Lipid screening COLONOSCOPY SCREENING Routine 01/28/2020 10:16 AM CDT Screening for colorectal cancer Polyp of colon, unspecified part of colon, unspecified type from Last 3 Months or Most Recently Relevant to Health Maintenance Results * PATH TISSUE EXAM (11/22/2024 3:49 PM CDT) Only the most recent of2 resultswithin the time period is included. Case Report Pathology Report Case: [id number] Authorizing Provider: Khadar Davidson MD Collected: 11/22/2024 1549 Ordering Location: [facility] Received: 11/23/2024 1135 Clinic Pathologist: Coleman Thomason Jr., MD Specimen: Left Tibia, squamous cell carcinoma, single stitch superior, double stitch lateral 11/26/2024 11:09 AM CDT [facility]- ENTRAL LABORATORY Final Diagnosis SKIN, LEFT TIBIA, RE-EXCISION: 1. Residual squamous cell carcinoma, completely excised 2. Changes of prior biopsy 11/26/2024 11:09 AM CDT [facility] ENTRAL LABORATORY at 1109 CDT Clinical Information Re-excision of SCC 11/26/2024 11:09 AM CDT [facility] ENTRAL LABORATORY Gross Description A) Received in formalin, labeled with the patient's name and squamous cell carcinoma left tibia, is a 2.7 x 0.7 x 0.5 cm oriented skin ellipse with a single stitch designating superior and a double stitch designating lateral. The single stitch has been arbitrarily redesignated as 12:00 and the double stitch has been arbitrarily redesignated as 3:00. The skin surface displays a 0.6 x 0.4 cm previous biopsy site 0.1 cm from the 3:00 margin. The specimen is inked as follows: 12-3 o'clock: Blue 3-6 o'clock: Green 6-9 o'clock: Red 9-12 o'clock: Yellow The specimen is serially sectioned from 12:00 to 6:00 and entirely submitted: 1. Tips (12:00, 6:00) 2-4. Remainder of specimen, sequentially submitted (previous biopsy site identified in cassettes 2-3) ADK 11/23/2024 11/26/2024 11:09 AM CDT [facility] ENTRAL LABORATORY Microscopic Description The final diagnosis is based on microscopic examination of appropriate sections of all specimens. 11/26/2024 11:09 AM CDT [facility] LAB[facility]-C ENTRAL LABORATORY Additional Information Interpreted at [facility], Central Laboratory - [address] [facility] [address], [place] [address] 11/26/2024 11:09 AM CDT [facility] LABORATORY-C ENTRAL LABORATORY Other (Left Tibia) Non-Blood / Unknown 11/22/2024 3:49 PM CDT 11/23/2024 11:35 AM CDT us Khadar Davidson MD PATHOLOGY/CYTOLOGY Final R esult [facility] LABORATORY-CENTRAL LABORATORY [address] [place] [address], [place] * CT CHEST SCREENING LOW DOSE WO CONTRAST (08/30/2024 9:15 AM CDT) Anatomical Region Laterality Modality Computed Tomogra phy Impressions 08/31/2024 2:14 PM CDT Negative for lung cancer screening purposes. LUNG-RADS CATEGORY: 1: Negative. RADIOLOGIST RECOMMENDATION: Continue annual screening with low-dose CT chest in 12 months. Please note that all CT scans at this facility use dose modulation, iterative reconstruction and/or weight-based dosing when appropriate to reduce radiation dose to as low as reasonably achievable. Dictated by: Chong Winn MD @08/30/2024 3:59:12 PM/bhm Narrative 08/31/2024 2:14 PM CDT For Patients: As a result of the Century Cures Act, medical imaging exams and procedure reports are released immediately into your electronic medical record. You may view this report before your referring provider. If you have questions, please contact your health care provider. CT CHEST SCREENING LOW-DOSE WITHOUT CONTRAST 08/30/2024 INDICATION: Lung cancer screening. History of smoking. High risk patient with greater than 20 pack-year smoking history. TECHNIQUE: Low-dose lung cancer screening non-contrast CT chest. Dose reduction techniques were used. COMPARISON: 08/29/2023. FINDINGS: NODULES: None. LUNGS AND PLEURA: Emphysema. Biapical pleural-parenchymal scarring. Linear subsegmental scarring in the RIGHT lung base. MEDIASTINUM: Stable sub cm mediastinal lymph nodes. CORONARY ARTERY CALCIFICATION: None. LIMITED UPPER ABDOMEN: Unremarkable. MUSCULOSKELETAL: No fracture. us Traci Mckeon MD CT Final R esult * XR MAMMO HERACLIO BILAT SCREEN (02/20/2024 1:15 PM BUSINESS SUPPORT ASSOCIATE) Anatomical Region Laterality Modality BREASTS, Breast Left, Breast Right Bilateral Mammography Impressions 02/23/2024 3:19 PM BUSINESS SUPPORT ASSOCIATE There is no radiographic evidence for malignancy. Recommend annual mammograms. MAMMOGRAM ASSESSMENT: ACR 1 Negative PATIENTS: You will also receive a letter with your examination results in an easy to read format. If you have questions about your results, please contact your referring provider. Narrative 02/23/2024 3:19 PM BUSINESS SUPPORT ASSOCIATE For Patients: As a result of the Cures Act, medical imaging exams and procedure reports are released immediately into your electronic medical record. You may view this report before your referring provider. If you have questions, please contact your health care provider. XR MAMMO HERACLIO BILAT SCREEN [[id number]] CLINICAL HISTORY: This is an asymptomatic 53 y.o. patient. INDICATION FOR EXAM: Mammogram Screening. TECHNIQUE: CC & MLO views were obtained. This study was evaluated with the assistance of Computer-Aided Detection. Breast Tomosynthesis was used in interpretation. COMPARISON FILM: Yes 02/17/23 [facility]22 [facility] FINDINGS: There are scattered areas of fibroglandular density. There are no dominant masses, suspicious micro calcifications or areas of architectural distortion. us Traci Mckeon MD MAMMO Final R esult * ANTI HCV (03/01/2022 10:00 AM BUSINESS SUPPORT ASSOCIATE) HEPATITIS C ANTIBODY Non-React bernadine Non-React bernadine 03/03/2022 1:49 PM BUSINESS SUPPORT ASSOCIATE [facility] TRAL LABORATORY Comment:Antibodies to HCV no t detected; does not exclude the possibility of exposure to HCV. Blood BLOOD SPECIMEN / Unknown Venipuncture / Unknown 03/01/2022 10:00 AM BUSINESS SUPPORT ASSOCIATE 03/01/2022 10:01 AM BUSINESS SUPPORT ASSOCIATE Traci Mckeon MD SEND OUTS Final R esult Performing Organization Address City/[facility]/ZIP Co de Phone Number [facility] [address] [place] [address], [place] * ANTI HIV 1/2 [82711.0] (03/01/2022 10:00 AM BUSINESS SUPPORT ASSOCIATE) HIV-1/HIV-2 ANTIBODY Non-Reacti ve Non-Reacti ve 03/03/2022 2:34 PM BUSINESS SUPPORT ASSOCIATE [facility] TRAL LABORATORY Comment:HIV-1 p24 and HIV-1/ HIV-2 Ab not detected. Blood BLOOD SPECIMEN / Unknown Venipuncture / Unknown 03/01/2022 10:00 AM BUSINESS SUPPORT ASSOCIATE 03/01/2022 10:01 AM BUSINESS SUPPORT ASSOCIATE us Traci Mckeon MD SEND OUTS Final R esult Performing Organization Address [facility] Co de Phone Number [facility] [address] [place] [address], [place] * HPV HIGH RISK (03/01/2022 9:30 AM BUSINESS SUPPORT ASSOCIATE) TYPE 16 Negative Negative 03/08/2022 4:48 PM BUSINESS SUPPORT ASSOCIATE [facility] TRAL LABORATORY TYPE 18 Negative Negative 03/08/2022 4:48 PM BUSINESS SUPPORT ASSOCIATE [facility] TRAL LABORATORY OTHER HIGH RISK TYPES Negative Negative 03/08/2022 4:48 PM BUSINESS SUPPORT ASSOCIATE [facility] TRAL LABORATORY Other (Cervical) Non-Blood / Unknown 03/01/2022 9:30 AM BUSINESS SUPPORT ASSOCIATE 03/04/2022 10:19 AM BUSINESS SUPPORT ASSOCIATE Narrative [facility] - 03/08/2022 4:48 PM BUSINESS SUPPORT ASSOCIATE HPV types 16, 18, 31, 33, 35, 39, 45, 51, 52, 56, 58, 59, 66 and 68 DNA were undetectable or below the pre-set threshold. Methodology: Maritza Chanell 4800 HPV Test us Traci Mckeon MD MICROBIOLOGY Final R esult [facility] [address] [place] [address], [place] * (ABNORMAL) LIPID PANEL W REFLEX MEASURED LDL (10/11/2021 8:25 AM CDT) CHOLESTEROL,TOTAL 178 100 - 199 mg/dL 10/11/2021 5:34 PM CDT [facility] TRAL LABORATORY TRIGLYCERIDES 159(H) <150 mg/dL 10/11/2021 5:34 PM CDT [facility] TRAL LABOR[facility] HDL CHOLESTEROL 35(L) >40 mg/dL 5:34 PM CDT [facility] TRAL LAB[facility]AT[facility] NON-HDL CHOLESTEROL 143 <145 mg/dl 10/11/2021 5:34 PM CDT [facility] TRAL LABORATORY CHOL/HDL RATIO 5.09(H) <4.50 10/11/2021 5:34 PM CDT [facility] TRAL LABORAT[facility] LDL CHOLESTEROL 111 <=130 mg/dL 10/11/2021 5:34 PM CDT [facility] TRAL LABOR[facility] VLDL CHOLESTEROL 32(H) <=30 mg/dL 10/11/2021 5:34 PM CDT [facility] TRAL LABORATORY PROVIDER ORDERED STATUS RANDOM 10/11/2021 5:34 PM CDT [facility] TRAL LABORATORY Blood BLOOD SPECIMEN / Unknown Venipuncture / Unknown 10/11/2021 8:25 AM CDT 10/11/2021 8:26 AM CDT us Traci Mckeon MD CHEMISTRY Final R esult [facility] [address] [place] [address], [place] * COLONOSCOPY SCREENING [[id number]] (01/28/2020 10:16 AM CDT) Traci Mckeon MD GI PROCEDURE ORD Final Result from Last 3 Months or Most Recently Relevant to Health Maintenance Additional Health Concerns Active Problems Noted Date Diagnosed Date Autogenerated Problem 11/18/2024 Insurance [employer] Advance Directives * Full Code (Latest Code Status on File) Date Activated Date Inactivated Comments 10/27/2015 6:54 PM 10/30/2015 3:12 PM * Full Code Date Activated Date Inactivated Comments 02/07/2015 9:01 AM 02/07/2015 3:41 PM Care Teams Mild Disabilities Teacher Relationship Specialty Start Date End Date Traci Mckeon MD PCP - General Family Practice 09/18/12
[2024-12-31 09:12] VITALS: BP 149/68; PULSE 69; RESP 18; TEMP 36.5; O2SAT 99; BMI 24.3
--- NOTE | 2024-12-31 09:24 | CRLHL7_ITS ---
For Patients: As a result of the Cures Act, medical imaging exams and procedure reports are released immediately into your electronic medical record. You may view this report before your referring provider. If you have questions, please contact your health care provider. Indication: Injury Technique: Three views of the right 5th finger were acquired Comparison: There are no prior studies for comparison Findings: As described below Impression: There is a fracture of the mid and distal aspect of the right 5th proximal phalanx. This is comminuted, obliquely oriented and mildly displaced. Maximum displacement is about 2.2 millimeters. Varus no dislocation. No additional fractures. Soft tissue swelling. No foreign bodies Dictated by Thomas Jackson MD @ 12/31/2024 9:48:40 AM (Electronically Signed)
--- NOTE | 2024-12-31 09:25 | ED.TRAUMA ---
HPI - Trauma General Chief Complaint: Extremity Pain/Injury, Upper Stated Complaint: broken finger Time Seen by Provider: 12/31/24 09:20 History of Present Illness HPI narrative: Patient is a 54-year-old woman who was walking her dog this morning. The dog lower chest at the passerby and the dog's leash pulled on the patient's 5th digit right upper extremity. She has pain and swelling over the proximal digit. She has limited range of motion. There is some bruising. She is otherwise uninjured. The injury occurred immediately prior to her coming in. There is no skin breakdown. Pain is moderate. Related Data Home Medications ?Medication ?Instructions ?Recorded ?Confirmed aripiprazole 5 mg tablet (Abilify) 5 mg PO QDAY 01/24/22 12/31/24 dextroamphetamine-amphetamine 5 mg 5 mg PO QDAY 01/24/22 12/31/24 tablet (Adderall) zoledronic acid 5 mg/100 mL in IV 01/24/22 12/31/24 mannitol 5 %-water intravenous piggybck (Reclast) Previous Rx's ?Medication ?Instructions ?Recorded celecoxib 200 mg capsule (Celebrex) 200 mg PO QDAY #30 caps 02/06/22 Allergies Allergy/AdvReac Type Severity Reaction Status Date / Time minocycline Allergy Verified 12/31/24 09:17 Penicillins Allergy Rash Verified 12/31/24 09:17 Review of Systems Status of ROS: Reports: 10 or more systems reviewed and unremarkable except as noted in History and below [facility] Medical History IBS (irritable bowel syndrome) ?K58.9 - Irritable bowel syndrome without diarrhea (ICD-10) Depression ?F32.A - Depression, unspecified (ICD-10) Low back pain ?M54.50 - Low back pain, unspecified (ICD-10) Osteoporosis ?M81.0 - Age-related osteoporosis without current pathological fracture (ICD-10) GERD (gastroesophageal reflux disease) ?K21.9 - Gastro-esophageal reflux disease without esophagitis (ICD-10) Surgical History H/O left knee surgery ?Z98.890 - Other specified postprocedural states (ICD-10) Social History Smoking Status: Former smoker Do you use any of these nicotine containing products: None Second hand tobacco smoke exposure: No How often do you have a drink containing alcohol: never AUDIT-C Alcohol total score: 0 Non-prescribed substance use: denies use Exam Narrative: Exam Narrative: EXAM GENERAL: Patient appears comfortable and well. EYES: No scleral icterus. LYMPH: No supraclavicular or cervical lymphadenopathy. SKIN: Visible skin seen during exam normal or with benign process only. EXT: Swelling and tenderness noted in the right 5th upper extremity digit. No other findings. PSYCH: Good eye contact, speech is not pressured. Const: Vital Signs, click to edit/add: Vital Signs - 24 hr 12/31/24 09:12 Temperature 97.7 F Pulse Rate [Right Pulse Oximeter] 69 Respiratory Rate 18 Blood Pressure [Ri ght Upper Arm] 149/68 H Pulse Oximetry 99 Oxygen Delivery Me thod Room Air Course Course ED Course: X-ray of the involved 5th digit right upper extremity ordered. Vital Signs Vital signs: Initial Vital Signs Temperature 97.7 F 12/31/24 09:12 Temperature Source Temporal Artery Scan 12/31/24 09:12 Pulse Rate 69 12/31/24 09:12 Pulse Rhythm Regular 12/31/24 09:12 Pulse Strength 3+ Normal 12/31/24 09:12 Respiratory Rate 18 12/31/24 09:12 Blood Pressure 149/68 H 12/31/24 09:12 Blood Pressure Mean 95 12/31/24 09:12 Blood Pressure Position Sitting 12/31/24 09:12 Pulse Oximetry 99 12/31/24 09:12 Oxygen Delivery Method Room Air 12/31/24 09:12 Vital Signs Temperature 97.7 F 12/31/24 09:12 Pulse Rate 69 12/31/24 09:12 Respiratory Rate 18 12/31/24 09:12 Blood Pressure 149/68 H 12/31/24 09:12 Pulse Oximetry 99 12/31/24 09:12 Oxygen Delivery Method Room Air 12/31/24 09:12 Temperature 97.7 F 12/31/24 09:12 Pulse Rate 69 12/31/24 09:12 Respiratory Rate 18 12/31/24 09:12 Blood Pressure 149/68 H 12/31/24 09:12 Pulse Oximetry 99 12/31/24 09:12 Oxygen Delivery Method Room Air 12/31/24 09:12 MDM - Trauma MDM Narrative Medical decision making narrative: Patient presents with a injury to the right 5th digit upper extremity. She has a tangential fracture involving the proximal digit. I did recommend ice Tylenol Motrin and we did splint the digit and recommended orthopedic follow-up. Discharge Plan Discharge Clinical Impression: Finger fracture Patient Disposition: Home, Self-Care Condition: Stable Instructions: Finger Fracture (ED) Additional Instructions: Splint as directed Tylenol Motrin Ice Follow-up with orthopedics this coming week. Activity Level: No Restrictions Discharge Diet: Regular Prescriptions: No Action dextroamphetamine-amphetamine [Adderall] 5 mg tablet 5 mg PO QDAY zoledronic [id number] [Reclast] 5 mg/100 mL piggyback IV aripiprazole [Abilify] 5 mg tablet 5 mg PO QDAY celecoxib [Celebrex] 200 mg capsule 200 mg PO QDAY Qty: 30 0RF Follow Up/Referrals: Traci Mckeon MD [Primary Care Provider, Family Practice] Stand Alone Forms: [employer] Info Instructions
== END 2024-12-31 10:00 | disposition home or self-care (01) ==
PROVIDERS: Emergency Provider Internal Medicine; PCP Family Medicine
DX: S62.646A Nondisplaced fracture of proximal phalanx of right little finger, initial encounter for closed fracture (principal); W23.0XXA Caught, crushed, jammed, or pinched between moving objects, initial encounter
CPT/HCPCS: 29130; 73140; 99283

== ENCOUNTER 2025-01-04 09:37 | Day surgery (SDC) | payer BC, SELFPAY ==
[2025-01-04] VITALS (15 sets, daily range): BP systolic 110–145; BP diastolic 56–78; PULSE 70–88; RESP 16; TEMP 36.9; O2SAT 99–100; BMI 24.3
[2025-01-04] MEDS: SODIUM CHLORIDE 0.9 % (FLUSH) 10 ML SYRINGE IVF (11:00)
[2025-01-04] MEDS: BUPIVACAINE 0.5% 30 ML INJECTION (12:10)
[2025-01-04] MEDS: LIDOCAINE 1% MDV 20 ML INJECTION (12:10)
--- NOTE | 2025-01-04 12:59 | P.ORPRC_ITS ---
Procedure Note Date of procedure: 01/04/25 Procedure: PREOPERATIVE DIAGNOSIS: Extra-articular displaced oblique proximal phalanx fracture of the right hand, small finger POSTOPERATIVE DIAGNOSIS: Extra-articular displaced oblique proximal phalanx fracture of the right hand, small finger NAME OF OPERATION: Closed reduction percutaneous pinning SURGEON: Mata Winters MD OCC THERAPIST: TG Keenan ANESTHESIA: Digital block ESTIMATED BLOOD LOSS: 1 mL COMPLICATIONS: None SPECIMENS: None DRAINS: None PREOPERATIVE ANTIBIOTICS: Ancef 1 g INDICATIONS: The patient is a 54-year-old who sustained a twisting mechanism injury to the right hand, small finger, sustaining the above injury. Given the amount of angulation, reduction and pin fixation were recommended. The risks, benefits and expected outcomes were discussed in detail. These included but were not limited to: Infection, bleeding, injury to blood vessel or nerve, venous thromboembolism. All questions were answered to their satisfaction. Use of an apartment community assistant manager was necessary throughout the case for patient positioning and safety, maintenance of the reduction, surgical site dressing and splint application. PROCEDURE: The patient was placed supine on the operating room table. A digital block was placed by the apartment community assistant manager. Longitudinal traction and compression at the fracture site was placed. The image intensifier was brought in to confirm a near anatomic reduction. A 0.045 in K-wire was driven from the ulnar side of the proximal fragment, across the fracture to engage the radial side of the distal fragment. We placed 2 more 0.045 in K-wires parallel to this, 1 distal and 1 proximal. This construct was evaluated with the image intensifier. It was felt that our implants were well placed and our reduction was excellent. Pins were cut off, bent over and were appropriately dressed. A short-arm ulnar gutter splint was applied. These steps were all completed by the apartment community assistant manager. Sponge and needle counts were correct x2. The patient tolerated the procedure well, there were no apparent complications. They were taken to the postanesthesia care unit in satisfactory condition. PLAN: The patient will be discharged home. They will work on elevation of the hand. They will follow up next week in the office for a wound check with three views of the right hand small finger, out of the splint prior to being seen, in preparation for an ulnar gutter cast.
== END 2025-01-04 13:20 | disposition home or self-care (01) ==
PROVIDERS: PCP Family Medicine; Visit Provider Orthopaedic Surgery
PROC: (CPT 26727; principal; 2025-01-04 11:45)
DX: S62.616A Displaced fracture of proximal phalanx of right little finger, initial encounter for closed fracture (principal)
CPT/HCPCS: 26727; 73140; 76000; J2003; J0665; J0690